=== PATIENT | female | born 1975 | race Caucasian/White ===

== ENCOUNTER 2017-05-26 16:49 | Emergency (ER) | payer SELFPAY ==
--- NOTE | ~2017-05-26 | ER ---
PATIENT'S NAME: CANDDIA COREY [facility] AGE: 42 Y [address] ROOM: [place], [place] [id number] LOCATION: [facility] ADMIT DATE: 05/26/2017 ER/Outpatient Report DISCHARGE DATE: 05/26/2017 FAMILY PHYSICIAN: Cris Moffett MD ATTENDING PHYSICIAN: Horacio Alexandra Arrival Time 1649 hours. Encounter Time: 1653 hours. SUBJECTIVE/CHIEF COMPLAINT: Right eye pain. HISTORY OF PRESENT ILLNESS: The patient is a pleasant 42-year-old female complaining of right eye pain that started yesterday as she was trying to catch a box at work. She misjudged the incoming box, it struck her in the right eye. Since that time, she has had excessive watering of the eye, and sensitivity to light. She notes that her vision clears after some blinking, but the pain has been constant over the last day or so. Denies any head, neck, or back pain. Feels a foreign body sensation in her eye, does not move. PERTINENT REVIEW OF SYSTEMS: All systems are reviewed by me and negative unless otherwise stated in the HPI. PAST MEDICAL HISTORY: As noted on the nursing document. None stated by the patient. PAST SURGICAL HISTORY: Denied by the patient as well. ALLERGIES: NO KNOWN DRUG ALLERGIES. MEDICATIONS: The patient is on: 1. Motrin over the counter as needed for pain. 2. Benadryl over the counter as needed for seasonal allergies. SOCIAL HISTORY: The patient denies a smoking history. OBJECTIVE: VITAL SIGNS: Height 5 feet 3 inches, weight 63.4 kg. Blood pressure 131/78, pulse 92 and regular, respirations 16 per minute, temperature 99.5 degrees PATIENT'S NAME: CANDIDA COREY [facility] AGE: 42 Y [address] ROOM: [place], [place] [address] LOCATION: [facility] ADMIT DATE: 05/26/2017 ER/Outpatient Report DISCHARGE DATE: 05/26/2017 FAMILY PHYSICIAN: Cris Moffett MD ATTENDING PHYSICIAN: Horacio Alexandra Fahrenheit taken tympanically, and SpO2 98% on room air. Current pain, 8/10. GENERAL: The patient is well developed, well nourished, in no acute distress. She is calm. Alert and oriented to person, place, and time. HEENT: Head is atraumatic and normocephalic. Eyes: The right eye has a 4 mm corneal abrasion at the 12 o'clock position in a horizontal orientation across the eye. It collects fluorescein and ruminates on black-white exposure. Left eye is normal-appearing with white conjunctiva and no discharge. There is no foreign body in either eye. Vision at this time is 20/20 with both eyes, 20/20 left eye, and 20-20 -2 on the injured right eye. Nose shows pink turbinates that are not swollen. No drainage. Throat with midline uvula. No exudates, erythema, or tonsillar hypertrophy. NECK: Supple and without lymphadenopathy. Trachea midline. No JVD. LUNGS: Clear to auscultation bilaterally. No wheezes, crackles, rhonchi, or stridor. Normal respiratory effort. HEART: Regular rate and rhythm. No S3, S4, or extra sounds. SKIN: Oct[place], warm, and dry. ASSESSMENT: Right corneal abrasion without foreign body. PLAN: Applied numbing eyedrops into the surface of the eye and the patient experienced immediate great improvement to her symptoms as well as decreased watering of the eye. With the corneal abrasion, I would like her to keep the eye covered for the next 24 hours. Also no work for the next 24 hours to limit eye strain. Also provided them with some tobramycin eyedrops for lubrication and infection prophylaxis on the injured cornea. I expect her vision to gradually improve over the next 2-3 days. I advised her routine followup with an informatics coordinator if she does not have full resolution of symptoms within the week. The patient is comfortable with this and verbalizes understanding. She is discharged home in improved status. She has a friend who is here to drive her. Take all medications as prescribed. Discussed med risks, side effects, and benefits in detail with the patient. Give plenty of rest and liquids. Take Tylenol or ibuprofen as directed for fever or discomfort unless allergic, asthmatic, or aspirin sensitive. Return to the emergency department or primary care provider if symptoms persist or worsen. CRIS BLANCA PA-C FOR HORACIO ALEXANDRA MD [facility]/modl PATIENT'S NAME: CANDIDA COREY [facility] AGE: 42 Y [address] ROOM: [place] [id number] LOCATION: [facility] ADMIT DATE: 05/26/2017 ER/Outpatient Report DISCHARGE DATE: 05/26/2017 FAMILY PHYSICIAN: Cris Moffett MD ATTENDING PHYSICIAN: Horacio Alexandra /[id number] d: t: 05/26/17 2330, OUTPATIENT REPORT
== END 2017-05-26 17:33 | disposition disaster alternative care site (69) ==
LOC: GACC 16:49
DX: S05.01XA Injury of conjunctiva and corneal abrasion without foreign body, right eye, initial encounter (principal); W22.8XXA Striking against or struck by other objects, initial encounter; Y92.69 Other specified industrial and construction area as the place of occurrence of the external cause; Y99.0 Civilian activity done for income or pay